=== PATIENT | male | born 1965 | race Two or more races ===

== ENCOUNTER → 2016-12-04 | Outpatient (REF) | payer OTHER ==
[2016-12-04 13:34] LABS: ALBUMIN 3.8 GM/DL (3.2-5.2); ALBUMIN/GLOBULIN RATIO 1.15 (1.00-1.93); ALKALINE PHOSPHATASE 97 U/L (45-117); ALT/SGPT 31 U/L (12-78); ANION GAP 2 MEQ/L (8-16); AST/SGOT 19 U/L (15-37); BILIRUBIN,TOTAL 0.4 MG/DL (0.2-1.0); BLOOD UREA NITROGEN 18 MG/DL (7-18); CALCIUM LEVEL 8.6 MG/DL (8.5-10.1); CARBON DIOXIDE LEVEL 30 MEQ/L (21-32); CHLORIDE LEVEL 104 MEQ/L (98-107); CREATININE FOR GFR 0.96 MG/DL (0.70-1.30); GLOMERULAR FILTRATION RATE > 60.0 (>56); GLUCOSE, FASTING 92 MG/DL (70-105); POTASSIUM SERUM 4.2 MEQ/L (3.5-5.1); SODIUM LEVEL 136 MEQ/L (136-145); TOTAL PROTEIN 7.1 GM/DL (6.4-8.2)
[2016-12-04 14:37] LABS: ERYTHROCYTE SEDIMENTATION RATE 41 mm/hr (0-20)
[2016-12-04 14:39] LABS: BASO % 0.2 % (0.0-1.0); EOS # 0.1 K/mm3 (0.0-0.50); EOS % 1.4 % (0.0-3.0); LARGE UNSTAINED CELL # 0.2 K/mm3 (0.0-0.4); LARGE UNSTAINED CELL % 1.8 % (0.0-4.0); LYMPH # 1.7 K/mm3 (1.5-4.5); LYMPH % 17.9 % (24.0-44.0); MEAN CORPUSCULAR HEMOGLOBIN 30.6 pg (27.0-33.0); MEAN CORPUSCULAR HGB CONC 34.1 g/dl (32.0-36.5); MEAN CORPUSCULAR VOLUME 89.7 fl (80.0-96.0); MONO # 0.6 K/mm3 (0.0-0.8); MONO % 6.6 % (0.0-5.0); NEUTROPHILS # 6.9 K/mm3 (1.8-7.7); NEUTROPHILS % 72.1 % (36.0-66.0); PLATELET COUNT, AUTOMATED 261 k/mm3 (150-450); RED CELL DISTRIBUTION WIDTH 13.7 % (11.5-14.5); WHITE BLOOD COUNT 9.5 K/mm3 (4.0-10.0)
== END ==
LOC: M SFHCPLAZ 09:15
PROVIDERS: ATTEND Internal Medicine Infectious Disease
DX: R61 Generalized hyperhidrosis (principal); Z95.1 Presence of aortocoronary bypass graft; I50.22 Chronic systolic (congestive) heart failure; I25.810 Atherosclerosis of coronary artery bypass graft(s) without angina pectoris

== ENCOUNTER → 2017-02-04 | Outpatient (REF) | payer OTHER ==
[~2017-02-04] MED LIST: ADVA115A PO; ALBU17IN INH; ASPI81TA18 PO; ATOR40TA75 PO; BACL10TA2 PO; EPIP0.3I2 IJ; FOLI1TAB4 PO; FURO40TA2 PO; GABA600T PO; ISOS30TA4 PO; LISI10TA4 PO; METO-346 PO; NITR0.4S14 SL; OXYCOD/APAP PO; POLY1POW4 PO; RANO5TAB PO; VITA100067 PO; VITA80003 PO; VITMTA PO
== END ==
LOC: M SFHCPLAZ 10:13
PROVIDERS: ATTEND Internal Medicine Infectious Disease
DX: I25.810 Atherosclerosis of coronary artery bypass graft(s) without angina pectoris (principal)

== ENCOUNTER 2017-03-18 07:08 | Day surgery (SDC) | payer OTHER ==
[~2017-03-18] VITALS: Ht 188 cm; Wt 124.7 kg
[~2017-03-18 07:08] MED LIST changes: +LIDOCAINE 2% INJ 100 MG/5 ML SDV (FOR ANES.) As Ordered ONE; +MIDAZOLAM INJ 2 MG/2 ML VIAL (J2250) As Ordered ONE; +ONDANSETRON 4MG/2ML VIAL (J2405) As Ordered ONE; +PROPOFOL 200 MG/20 ML VIAL As Ordered ONE; +ROCURONIUM BROMIDE 50 MG/5 ML VIAL/SYRINGE As Ordered ONE; +SUCCINYLCHOLINE 100 MG/5 ML SYRINGE (J0330) As Ordered ONE; +dexameTHASONE 4 MG/ML 1ML VIAL (J1100) As Ordered ONE; +fentaNYL 100 MCG/2 ML INJECTION (J3010) As Ordered ONE
[2017-03-18] MEDS ORDERED: LR 1,000 ML IV SCH ×3 (07:15→09:30)
[2017-03-18] MEDS ORDERED: ONDANSETRON 4MG/2ML VIAL (J2405) IV PRN ×2 (07:30→09:30)
[2017-03-18] MEDS ORDERED: diphenhydrAMINE INJ 50MG/ML VIAL (J1200) IV PRN (07:30)
[2017-03-18] MEDS ORDERED: MEPERIDINE INJ 25 MG/ML VIAL (J2175) IV PRN ×2 (07:30→09:30)
[2017-03-18] MEDS ORDERED: fentaNYL 100 MCG/2 ML INJECTION (J3010) IV PRN ×2 (07:30→09:30)
[2017-03-18] MEDS ORDERED: NALBUPHINE HCL 10 MG/ML AMP (J2300) IV PRN (07:30)
[2017-03-18] MEDS ORDERED: BUPIVACAINE/EPIN 0.5% 30 ML VIAL As Ordered ONE (08:06)
[2017-03-18] MEDS ORDERED: LIDOCAINE W/EPINEPHRINE 1% 20ML VIAL As Ordered ONE (08:06)
[2017-03-18] MEDS ORDERED: PERCOCET 5MG/325MG TAB As Ordered ONE (09:25)
[2017-03-18] MEDS: PERCOCET 5MG/325MG TAB PO PRN ×2 (09:29→09:56)
[2017-03-18] MEDS ORDERED: METOCLOPRAMIDE INJ 10MG/2ML VIAL (J2765) IV PRN (09:30)
[2017-03-18] MEDS ORDERED: NORCO, ANEXSIA 5/325MG TABLET (HYDROcodone/ACETAMINOPHEN) PO PRN (09:30)
[2017-03-18 10:30] VITALS: BP 135/67
--- NOTE | 2017-03-19 07:15 | RO ---
DATE OF PROCEDURE: 03/18/2017 PREOPERATIVE DIAGNOSIS: Right tonsillar hypertrophy. POSTOPERATIVE DIAGNOSIS: Right tonsillar hypertrophy. OPERATIVE PROCEDURE: Right tonsillectomy. SURGEON: Dr. Bruno Mullins FLUX TUBE ATTENDANT: ANESTHESIA: Under general anesthesia with the patient intubated, Leyva-Young mouth gag was inserted. The tonsil area was infiltrated with lidocaine and Marcaine. Using the Coblator at a setting of 6 and 4, the tonsil was dissected free from its bed on the right side. Bleeding was controlled with cautery at a setting of 4 on the Coblator. The patient tolerated the procedure well. Minimal blood loss. A nasogastric tube was passed to suction the upper esophagus. The patient was extubated and transferred to the recovery room in excellent condition.
== END 2017-03-18 10:35 | disposition home or self-care (01) ==
LOC: M SDC 07:08
PROVIDERS: ATTEND Otolaryngology
DX: J35.1 Hypertrophy of tonsils (principal); I25.810 Atherosclerosis of coronary artery bypass graft(s) without angina pectoris; G47.33 Obstructive sleep apnea (adult) (pediatric); E66.01 Morbid (severe) obesity due to excess calories; I50.22 Chronic systolic (congestive) heart failure; R61 Generalized hyperhidrosis; M47.816 Spondylosis without myelopathy or radiculopathy, lumbar region; R91.8 Other nonspecific abnormal finding of lung field; L40.50 Arthropathic psoriasis, unspecified; I71.4 Abdominal aortic aneurysm, without rupture; I25.2 Old myocardial infarction; I11.0 Hypertensive heart disease with heart failure; E78.00 Pure hypercholesterolemia, unspecified; M15.0 Primary generalized (osteo)arthritis; L40.52 Psoriatic arthritis mutilans; R29.898 Other symptoms and signs involving the musculoskeletal system; J44.9 Chronic obstructive pulmonary disease, unspecified; Z91.018 Allergy to other foods; Z91.030 Bee allergy status; Z79.899 Other long term (current) drug therapy; Z79.82 Long term (current) use of aspirin; Z95.1 Presence of aortocoronary bypass graft; Z87.891 Personal history of nicotine dependence
CPT/HCPCS: 42826; 88302; J0330; J1100; J2250; J2405; J3010